=== PATIENT | male | born 1955 | race Caucasian/White ===

== ENCOUNTER → 2017-06-29 12:14 | Outpatient (CLI) | payer OTHER | END | disposition home or self-care (01) | LOC: D.CT 12:14 | DX: J44.9 Chronic obstructive pulmonary disease, unspecified (principal) ==

== ENCOUNTER → 2017-10-03 07:51 | Outpatient (CLI) | payer OTHER ==
[2017-10-04 13:16] LABS: IMMUNOGLOBULIN A 267 mg/dL (61-437); IMMUNOGLOBULIN G 1128 mg/dL (700-1600); IMMUNOGLOBULIN M 53 mg/dL (20-172)
[2017-10-05 03:14] LABS: ANGIOTENSIN CONVERTING ENZYME 42 U/L (14-82)
[2017-10-05 22:07] LABS: IMMUNOGLOBULIN E 825 IU/mL (0-100)
[2017-10-07 17:09] LABS: FUNGAL - ASP FLAVUS Negative (Neg:<1:1); FUNGAL - ASP NIGER Negative (Neg:<1:1); FUNGAL - ASPER FUMIGATUS Negative (Neg:<1:1)
== END | disposition home or self-care (01) ==
LOC: D.RT 09-29 08:00 → D.LAB 09-29 09:00 → D.RT 07:51
PROVIDERS: Internal Medicine Pulmonary Disease
DX: J44.9 Chronic obstructive pulmonary disease, unspecified (principal); R91.1 Solitary pulmonary nodule